=== PATIENT | female | born 1945 | race Caucasian/White ===

== ENCOUNTER 2016-09-04 09:50 | Day surgery (SDC) | payer OTHER ==
[2016-09-03 14:01] LABS: HEMATOCRIT 41.9 % (37.0-47.0); HEMOGLOBIN 13.9 g/dL (12.0-16.0); MCH 27.7 PG (27-31); MCHC 33.2 g/dL (33-37); MCV 83.6 FL (81-99); RBC 5.01 XMIL (4.2-5.4)
[2016-09-03 14:18] LABS: AGAP 15; BUN 15 mg/dL (8-22); CALCIUM 9.8 mg/dL (8.8-10.2); CHLORIDE 93 mmol/L (98-107); COSMO 269; POTASSIUM 4.3 mmol/L (3.5-5.1); SODIUM 134 mmol/L (136-145); TCO2 26 mmol/L (25-35)
[2016-09-04] MEDS ORDERED: PEPCID ONE (10:23)
[2016-09-04] MEDS ORDERED: LR 1,000 ML ONE ×2 (10:23→10:57)
[2016-09-04] MEDS ORDERED: KEFZOL 1 GM/D5W 50 ML ONE (10:23)
[2016-09-04] MEDS ORDERED: REGLAN ONE (10:23)
[2016-09-04] MEDS ORDERED: MARCAINE 0.25% PF/EPI 1:200,000 ONE (10:57)
[2016-09-04] MEDS ORDERED: SODIUM CHLORIDE 0.9% ONE (10:57)
--- NOTE | 2016-09-04 13:19 | Diag Imaging Result Document ---
PROCEDURE NAME: OPERATIVE CHOLANGIOGRAM - 09/04/2016 INTRAOPERATIVE CHOLANGIOGRAM, SINGLE VIEW: FINDINGS: There is normal opacification of the common bile duct. No stone or stricture. Normal passage of contrast through the common bile duct into the duodenum. IMPRESSION: No stone or stricture.
[2016-09-04] MEDS ORDERED: NORCO-7.5 ONE (13:31)
--- NOTE | 2016-09-04 13:38 | OPERATIVE NOTE ---
PROCEDURE DATE: 09/04/2016 PREOPERATIVE DIAGNOSIS: Chronic cholecystitis with cholelithiasis. POSTOPERATIVE DIAGNOSIS: Chronic cholecystitis with cholelithiasis. PRINCIPAL PROCEDURE: Laparoscopic cholecystectomy with intraoperative cholangiogram. SURGEON: Sonia Damico MD. ANESTHESIA: General in addition to local anesthetic. ESTIMATED BLOOD LOSS: 10 mL. DRAINS: None. INDICATIONS: Ms Rose Goldstein is a 71-year-old white female patient of Dr. Sams who has been experiencing epigastric and right upper quadrant pain. Ultrasound documented gallstones. It was felt that her gallstones were symptomatic, and cholecystectomy was recommended. FINDINGS: Her gallbladder was chronically inflamed and had stones within it. We did do an intraoperative cholangiogram, which showed free flow of the dye into the duodenum without evidence of extrahepatic stones or obstruction. The liver appeared to be slightly swollen but otherwise was normal. There is no intraabdominal adhesions. We felt the surface of the bowel looked normal. We recognized no other pathology and we felt we did the operation safely. We did do an intraoperative cholangiogram. DESCRIPTION OF PROCEDURE: The patient was brought to the operating room, placed supine, received general anesthesia, and was intubated. Her abdomen was prepped and draped within a sterile field. We made a incision above the umbilicus within the midline using a 15-blade scalpel. Veress needle was introduced through this incision into the abdomen. Pneumoperitoneum was established. The Veress needle was removed. We used 11 mm trocar through this incision into the abdomen. The camera was placed through this port, and the abdomen was explored for injury, there was none. Three other trocars were placed along the right costal margin under direct vision the camera. We placed 11 mm trocar just to the right of the midline and two 5 mm trocars in our midclavicular and anterior axillary lines. Through our most lateral port, the gallbladder was grasped, retracted superiorly along with the right lobe of the liver. Another grasper was used to grab the body of gallbladder and the triangle of Calot was bluntly dissected. We identified the cystic duct along its length. We placed a clip at the cystic duct gallbladder junction. We made a small incision in the cystic duct using hook scissors and a taut intraoperative cholangiogram catheter was used to perform the cholangiogram with the findings above. Once cholangiogram was completed, we placed 2 clips proximally on the cystic duct and we divided the cystic duct between clips using hook scissors. The cystic artery was identified. A clip was placed distally, 2 proximally. It was divided using hook scissors. The spatula cautery was used to remove the gallbladder from the liver bed. There was no spillage of stones or bile during this procedure and the gallbladder was removed through our umbilical incision. We placed the trocar back through this incision and the area of operation was thoroughly inspected, irrigated, and the irrigation was removed with suction. There is no evidence of ongoing bleeding or bile leak. No drains were left. All trocars removed under direct vision the camera. The pneumoperitoneum was allowed to dissipate. We used [id number] 2-0 Vicryl stitch to reapproximate the fascia at our umbilicus and all skin was closed with 4-0 Monocryl subcuticular stitches. Steri-Strips were applied. She tolerated the procedure well with plans for her to go the recovery room and then be discharged home later today under the care of her with followup in my outpatient office in 7-10 days.
[2016-09-04 14:00] VITALS: BP 134/84
[2016-09-04] MEDS ORDERED: FENTANYL ONE (15:12)
[2016-09-04] MEDS ORDERED: DIPRIVAN 1% ONE (15:12)
[2016-09-04] MEDS ORDERED: XYLOCAINE-MPF 2% ONE (15:21)
[2016-09-04] MEDS ORDERED: NEOSTIGMINE ONE (15:21)
[2016-09-04] MEDS ORDERED: ZOFRAN ONE (15:21)
[2016-09-04] MEDS ORDERED: ROBINUL ONE (15:21)
[2016-09-04] MEDS ORDERED: QUELICIN (DOSE) ONE (15:21)
[2016-09-04] MEDS ORDERED: ZEMURON ONE (15:21)
[2016-09-04] MEDS ORDERED: EPHEDRINE ONE (15:21)
[2016-09-04] MEDS ORDERED: DECADRON ONE (15:21)
== END 2016-09-04 14:05 | disposition home or self-care (01) ==
LOC: OPS 09:50
PROVIDERS: ATTEND Surgery
DX: K80.10 Calculus of gallbladder with chronic cholecystitis without obstruction (principal); M19.90 Unspecified osteoarthritis, unspecified site; I10 Essential (primary) hypertension; K21.9 Gastro-esophageal reflux disease without esophagitis
CPT/HCPCS: 74300; 80048; 85027; 88304; C1751; J0330; J0690; J1100; J2405; J3010; J7120; Q9966; J2710